=== PATIENT | female | born 1970 | race Asian ===

== ENCOUNTER 2018-06-30 08:43 | Outpatient (CLI) | payer BC ==
[2018-06-30] MEDS ORDERED: [UNRECOGNIZED DRUG - OTHER] PO (10:00)
[2018-06-30] MEDS ORDERED: NAPR220C2 PO (10:00)
== END 2018-06-30 23:59 | disposition home or self-care (01) ==
LOC: STAR 08:43
PROVIDERS: ATTEND Orthopaedic Surgery
DX: Z02.9 Encounter for administrative examinations, unspecified (principal)

== ENCOUNTER 2018-07-06 07:11 | Day surgery (SDC) | payer BC ==
[~2018-07-06] VITALS: Ht 152.4 cm; Wt 55.4 kg
[~2018-07-06 07:11] MED LIST: BUPIVACAINE/PF 0.5% ONE; EPINEPHRINE 1 MG/ML, 1ML ONE; LIDOCAINE 1%, 20ML ONE; NAPR220C2 PO; [UNRECOGNIZED DRUG - OTHER] PO
[2018-07-06] MEDS ORDERED: LACTATED RINGERS 1,000 ML IV SCH (07:34)
[2018-07-06 07:57] VITALS: BP 102/69
[2018-07-06] MEDS ORDERED: ACETAMINOPHEN 500 MG TABLET PO ONE (08:30)
[2018-07-06] MEDS ORDERED: GABAPENTIN 300 MG CAPSULE PO ONE (08:30)
[2018-07-06] MEDS ORDERED: FENTANYL PF 100 MCG/2ML ONE (09:48)
[2018-07-06] MEDS ORDERED: MIDAZOLAM 1 MG/ML, 2ML ONE (09:48)
[2018-07-06] MEDS ORDERED: LIDOCAINE 2%, 6 ML JEL.PF.APP MM ONE (09:56)
[2018-07-06] MEDS ORDERED: KETOROLAC 30 MG/1 ML ONE (10:15)
[2018-07-06] MEDS ORDERED: SUCCINYLCHOLINE 20 MG/ML, 10ML ONE (10:15)
[2018-07-06] MEDS ORDERED: ONDANSETRON 2MG/ML, 2ML ONE (10:26)
[2018-07-06] MEDS ORDERED: CEFAZOLIN 1,000 MG ONE (10:26)
[2018-07-06] MEDS ORDERED: DEXAMETHASONE 4 MG/ML, 1ML ONE (10:26)
[2018-07-06] MEDS ORDERED: PROPOFOL 10 MG/ML, 20ML ONE (10:26)
[2018-07-06] MEDS ORDERED: MEPERIDINE/PF 25MG/ML,1ML ONE (10:54)
[2018-07-06] MEDS: MEPERIDINE/PF 25MG/0.5ML IVPush PRN ×2 (10:55→11:10)
[2018-07-06] MEDS ORDERED: ONDANSETRON 2MG/ML, 2ML IV PRN (11:00)
[2018-07-06] MEDS ORDERED: ALBUTEROL/IPRATROPIUM 2.5MG/0.5MG, 3 ML NPPB PRN (11:00)
[2018-07-06] MEDS ORDERED: PROMETHAZINE 25 MG/ML, 1ML IV PRN (11:00)
[2018-07-06] MEDS ORDERED: hydrALAzine 20 MG/ML, 1ML IV PRN (11:00)
[2018-07-06] MEDS ORDERED: METOPROLOL 1 MG/ML, 5ML IV PRN (11:00)
[2018-07-06] MEDS ORDERED: HYDROmorphone 2 MG/ML, 1ML IVPush PRN (11:00)
[2018-07-06] MEDS ORDERED: MIDAZOLAM 1 MG/ML, 2ML IV PRN (11:00)
[2018-07-06] MEDS ORDERED: FENTANYL PF 100 MCG/2ML IV PRN (11:00)
[2018-07-06] MEDS ORDERED: OXYcodone 5 MG/5 ML ORAL.SOL UDC PO PRN (11:00)
== END 2018-07-06 14:00 | disposition home or self-care (01) ==
LOC: OUT 07:11
PROVIDERS: ATTEND Orthopaedic Surgery
DX: S83.241A Other tear of medial meniscus, current injury, right knee, initial encounter (principal); S83.511A Sprain of anterior cruciate ligament of right knee, initial encounter; Z88.1 Allergy status to other antibiotic agents; Z88.0 Allergy status to penicillin; X58.XXXA Exposure to other specified factors, initial encounter; Y93.89 Activity, other specified; Y92.89 Other specified places as the place of occurrence of the external cause; Y99.8 Other external cause status
CPT/HCPCS: 29881; J0171; J0330; J0690; J1100; J1885; J2175; J2250; J2405; J2704; J3010; J7120